=== PATIENT | female | born 1935 | race Caucasian/White ===

== ENCOUNTER 2020-04-27 04:37 | Emergency (ER) | payer MEDICARE, MEDICAID, SELFPAY ==
--- NOTE | 2020-04-27 04:40 | XRR_ITS ---
PROCEDURE INFORMATION: Exam: XR Pelvis Exam date and time: 04/27/2020 5:00 AM Age: 84 years old Clinical indication: Injury or trauma; Injury history: Not specified; Initial encounter; Blunt trauma (contusions or hematomas); Bilateral; Pelvic region TECHNIQUE: Imaging protocol: XR pelvis. Views: 1 or 2 view. COMPARISON: No relevant prior studies available. FINDINGS: Bones/joints: osseous structures of the pelvis without an acute process. rami are intact. Sacroiliac joints without separation/diastases/fracture. Iliac bones unremarkable/noncontributory Degenerative changes within the hips: Degenerative changes within the visualized portions of the caudal aspect of the lumbar spine. Soft tissues: Unremarkable. XR/XR pelvis 1-2V* [id number] IMPRESSION: No acute process.
--- NOTE | 2020-04-27 04:40 | CTR_ITS ---
PROCEDURE INFORMATION: Exam: CT Head Without Contrast Exam date and time: 04/27/2020 4:41 AM Age: 84 years old Clinical indication: Injury or trauma; Fall; Initial encounter; Blunt trauma (contusions or hematomas); Consciousness not specified TECHNIQUE: Imaging protocol: Computed tomography of the head without contrast. Radiation optimization: All CT scans at this facility use at least one of these dose optimization techniques: automated exposure control; mA and/or kV adjustment per patient size (includes targeted exams where dose is matched to clinical indication); or iterative reconstruction. COMPARISON: CT head wo con* [id number] 07/21/2018 1:02 PM RADIATION DOSE METRICS: Total DLP (mGy-cm): 955.68 FINDINGS: Brain: Hypodensity is seen in the periventricular cerebral white matter. This change is nonspecific but is most likely secondary to chronic ischemia within microvascular distributions. [place] white matter distinction is maintained throughout the brain. No radiographic evidence of intracranial hemorrhage. Encephalomalacia in the right temporal posterior temporal and occipital region Ventricles: Ventricles are enlarged on the basis of mild diffuse cerebral volume loss. Bones/joints: Unremarkable. No acute fracture. Sinuses: Fluid within the sphenoid sinus Mastoid air cells: Visualized mastoid air cells are well aerated. Soft tissues: Unremarkable. Other findings: No intra or extra-axial masses, lesions or collections. CT/CT head wo con* [id number] IMPRESSION: No radiographic evidence of acute intracranial pathology. Radiation Dose CTDIVOL = (mGy): DLP = 955.68 (mGy-cm)
--- NOTE | 2020-04-27 04:40 | CTR_ITS ---
PROCEDURE INFORMATION: Exam: CT Cervical Spine Without Contrast Exam date and time: 04/27/2020 5:22 AM Age: 84 years old Clinical indication: Injury or trauma; Fall; Initial encounter; Blunt trauma TECHNIQUE: Imaging protocol: Computed tomography images of the cervical spine without contrast. Radiation optimization: All CT scans at this facility use at least one of these dose optimization techniques: automated exposure control; mA and/or kV adjustment per patient size (includes targeted exams where dose is matched to clinical indication); or iterative reconstruction. COMPARISON: No relevant prior studies available. RADIATION DOSE METRICS: Total DLP (mGy-cm): 410.46 FINDINGS: Vertebrae: alignment is normal. 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 Lungs: Lung apices are normal. CT/CT cervical spin wo con* [id number] IMPRESSION: No fracture. Radiation Dose CTDIVOL = (mGy): DLP = 410.46 (mGy-cm)
[2020-04-27 04:42] VITALS: BP 143/94; PULSE 120; RESP 20; TEMP 36.2; O2SAT 96; BMI 22.4
--- NOTE | 2020-04-27 04:45 | ED_ITS ---
HPI - Fall General: Chief Complaint: Fall Stated Complaint: NECK LAC Time Seen by Provider: 04/27/20 04:41 Source: EMS Mode of arrival: EMS Limitations: altered mental status History of Present Illness: HPI Narrative: Patient is an 84-year-old female from local [facility] after a fall roughly 1 hour ago. I found her down and she does have a skin tear to her neck. Patient has a history of severe dementia and is unable to give any history. Patient has no other signs of injury besides skin tear to her neck Review of Systems General: Reports: ROS unobtainable due to mental status PFSH ED PFSH: Medical History Alzheimer's dementia Atrial fibrillation CVA (cerebral vascular accident) Hyperlipidemia Hypersomnia Hypertension Leg swelling Ocular pain Parkinson disease Tremors of nervous system Surgical History History of hysterectomy Post corneal transplant Family History Other Alzheimer's dementia CAD (coronary artery disease) Cancer Stroke Denies family history of Diabetes Clotting disorder Dementia Hyperlipidemia Psychiatric illness Chronic kidney disease (CKD) Suicide Anesthesia complication Bleeding disorder Family history of premature coronary artery disease Lung disease Hypertension Social History Smoking and tobacco status: never smoked Alcohol intake: never Physical Exam Const: COMMON NORMALS: no acute distress; negative for patient oriented x3 EXAM LIMITATIONS: altered mental status HENMT: COMMON NORMALS: normocephalic and atraumatic HEAD & SCALP: normocep halic and atraumatic Eye: COMMON NORMALS: Equal, round and reactive pupils present and EOMs intact bilaterally PUPIL: Yes Equal, round and reactive pupils present Neck/C-Spine: COMMON NORMALS: full ROM and supple Chest: COMMONS NORMALS: normal inspection of the chest and normal palpation of entire chest wall Resp: COMMON NORMALS: normal respiratory effort, No retractions, No use of accessory muscles and clear to auscultation bilaterally AUSCULTATION: clear to auscultation bilaterally Cardio: COMMON NORMALS: regular rate, regular rhythm and No murmurs present (Cardio) RATE: regular rate RHYTHM: regular rhythm GI: COMMON NORMALS: Normal to inspection, nondistended, normoactive bowel sounds present, Soft to palpation, non-tender and no masses PALPATION: Yes Soft to palpation Extremity: COMMON NORMALS: normal to inspection and full ROM Neuro: COMMON NORMALS: moves all extremities and no focal motor deficits; negative for patient oriented x3 Psych: COMMON NORMALS: negative for mental status grossly normal Skin: COMMON NORMALS: no rashes or lesions noted and no wounds NARRATIVE SKIN EXAM: Roughly 4 cm superficial skin tear to left side of neck GENERAL SKIN EXAM: no rashes or lesions noted Course Vital Signs: Vital signs: Vital Signs Temperature 97.2 F L 04/27/20 04:42 Pulse Rate 86 04/27/20 06:16 Respiratory Rate 20 H 04/27/20 04:42 Blood Pressure 136/88 04/27/20 06:16 Pulse Oximetry 96 04/27/20 06:16 MDM - Fall MDM Narrative: Medical decision making narrative: Patient presents with a fall at correction. Patient is at her baseline mentally here. Patient's x-ray and CT scans here are negative. She does have a skin tear to her neck that is superficial. This does not require sutures. Patient is stable for discharge back to correction. Imaging Data^: X-ray pelvis: Attestation: I personally reviewed and interpreted this imaging study as follows: My impression: No acute abnormalities Discharge Plan Discharge Patient Disposition: Home Clinical Impression: Skin tear Fall Qualifiers: Encounter type: initial encounter Qualified Code(s): W19.XXXA - Unspecified fall, initial encounter Condition: Stable Prescriptions: No Action metoprolol tartrate 25 mg tablet 25 mg PO BID RF: 0 oxybutynin chloride 5 mg tablet 5 mg PO BID RF: 0 prednisolone acetate 1 % drops,suspension 1 drop ophthalmic (eye) DAILY RF: 0 Ensure Liquid PO DAILY RF: 0 multivitamin Tablet 1 tab PO QAM RF: 0 potassium 99 mg tablet PO DAILY RF: 0 ascorbic acid (vitamin C) 1,000 mg tablet 1 gm PO DAILY RF: 0 vitamin E (dl, acetate) 1,000 unit capsule 1,000 unit PO DAILY RF: 0 Discharge Orders: Discharge Order (Routine); Ordered 04/27/20 Ordered By: Rissa Hooper Referrals: Chris Huston DO [Primary Care Provider] - 1-3 days Discharge Diet: Advance as tolerated Discharge Activity: Resume usual activity Patient Instructions: Skin Tear (ED) Discharge Date/Time: 04/27/20 06:10 Coding Level of Care Code ED Sales Merchandiser for Chg Fwd Exam Comprehensive
[2020-04-27 06:16] VITALS: BP 136/88; PULSE 86; O2SAT 96
== END 2020-04-27 06:10 | disposition home or self-care (01) ==
PROVIDERS: Emergency Provider Emergency Medicine; PCP Internal Medicine
DX: S11.91XA Laceration without foreign body of unspecified part of neck, initial encounter (principal); W19.XXXA Unspecified fall, initial encounter; Y92.129 Unspecified place in nursing home as the place of occurrence of the external cause; G30.9 Alzheimer's disease, unspecified; F02.80 Dementia in other diseases classified elsewhere, unspecified severity, without behavioral disturbance, psychotic disturbance, mood disturbance, and anxiety; I48.91 Unspecified atrial fibrillation; Z86.73 Personal history of transient ischemic attack (TIA), and cerebral infarction without residual deficits; E78.5 Hyperlipidemia, unspecified; I10 Essential (primary) hypertension; G20 Parkinson's disease
CPT/HCPCS: 12345; 70450; 72125; 72170; 99282; 99283